=== PATIENT | female | born 2000 | race Caucasian/White ===

== ENCOUNTER 2020-03-15 02:48 | Emergency (ER) | payer SELFPAY ==
[~2020-03-15] VITALS: Ht 157.5 cm; Wt 54.4 kg
[2020-03-15 03:50] VITALS: BP 135/97
== END 2020-03-15 04:06 | disposition home or self-care (01) ==
LOC: ER 02:50
DX: N39.0 Urinary tract infection, site not specified (principal); R35.0 Frequency of micturition